=== PATIENT | male | born 1985 | race Caucasian/White ===

== ENCOUNTER 2019-07-04 21:06 | Emergency (ER) | payer OTHER, SELFPAY ==
[2019-07-04 21:06] VITALS: BP 132/83; PULSE 73; RESP 18; TEMP 36.7; O2SAT 96; BMI 19.0
--- NOTE | 2019-07-04 21:26 | ED.VISSUMM ---
- ER Visit Summary Date of Service: 07/04/19 Chief Complaint: Left leg pain History of Present Illness: The patient is a 34 M who presents with pain and mild swelling over his left leg that began this morning. Patient states he woke up and noticed the pain and swelling in his left leg. Patient describes the pain as burning. Patient states nothing makes it better or worse. Patient denies any paresthesias or weakness. Patient denies any fevers or chills. Patient denies any trauma or injury. Patient states he had a procedure on his vein in his left proximal thigh several months ago. Patient states this healed up without difficulty. Patient states he had on his left anterior lower leg approximately 1 year ago. Patient states the pain and swelling is around this old wound. Physical Examination: Vital signs are stable. Patient is afebrile. Patient is in no acute distress. Musculoskeletal exam reveals tenderness with mild erythema and warmth over the anterior aspect of the left leg. There is no calf tenderness. There is no bony crepitance or step-off. There is no discharge or drainage. There is no fluctuance. There is no evidence of any abscess. There is no tenderness over the left thigh. Pedal pulses are equal bilaterally. There are no sensory deficits noted. There is full range of motion of the lower extremities bilaterally. Strength is 5/5 bilaterally. Emergency Department Course and Treatment: Patient was advised that this is consistent with cellulitis. I do not feel this is a DVT since there is no calf tenderness and his pain and swelling is anterior on his leg. Patient was given a dose of Keflex here. Patient was given a prescription for Keflex. Patient was instructed to follow-up with his primary care physician in 5 to 7 days. Patient understood and was agreeable with the plan. All questions were answered. Disposition: Discharge home Impression: Cellulitis left leg This note was generated with [employer] dictation software. It may contain incorrect words, spelling, and punctuation that were not noted in review of the chart prior to signing ED Disposition - Plan for ED Patient: Disposition: Home or Assisted Living Diagnosis: Cellulitis of left leg Instructions: Cellulitis Prescriptions: Cephalexin [Keflex] 500 mg PO Q6 #40 cap Prescription Printed Referrals: Gary Arias MD [Primary Care Provider] - 5-7 Days
[2019-07-04] MEDS: Cephalexin 250 MG Capsule 500 MG PO (21:39)
== END 2019-07-04 21:53 | disposition home or self-care (01) ==
LOC: ED 21:42
PROVIDERS: Emergency Provider Emergency Medicine
DX: L03.116 Cellulitis of left lower limb (principal)
CPT/HCPCS: 99283

== ENCOUNTER → 2022-07-04 | Outpatient (CLI) | payer SELFPAY, OTHER ==
--- NOTE | 2022-07-04 15:55 | MRI_ITS ---
INDICATION: Right parietal venous angioma EXAMINATION: MRI - MR Brain WO/W Contrast TECHNIQUE: MRI examination of the and multisequence MR images of the brain were obtained with gadolinium. IV Contrast Dosage and Agent: None. COMPARISON: 06/28/2017 FINDINGS: HEMISPHERES, CEREBELLUM AND BRAINSTEM: 1. The cerebral parenchyma, ventricular system, subarachnoid spaces have normal configuration and density. There is a normal gyral pattern. There is normal ivy/white differentiation. No midline shift.. 2. The there is a subtle blush of contrast enhancement along the subcortical surface at the level of the RIGHT precentral gyrus measuring approximately 6 mm in maximal dimension. Pattern is unchanged. 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 No evidence fluid restriction or other signal abnormalities. 3. No other areas of abnormal contrast enhancement. No evidence fluid restriction. 4. Hemispheric white matter has normal appearance. 5. No intraparenchymal mass, hemorrhage, or acute territorial infarct. 6. The cerebellum, brainstem, basilar and suprasellar cisterns have normal appearance. No Chiari malformation. PITUITARY: Infundibulum and pituitary have normal configuration. Midline structures appear normal. CSF SPACES: Appropriate for age. No hydrocephalus. Basal cisterns are patent. VESSELS: 1. There are normal flow voids noted in the great vessels at the skull base ORBITS AND PARANASAL SINUSES: 1. Both globes, extraocular muscles, optic nerves and retrobulbar fat appear unremarkable. 2. Subtle mucosal thickening in the maxillary antra. Small mucous retention cyst in the RIGHT maxillary antrum. Remaining paranasal sinuses are clear. BONY ELEMENTS: Bony elements of the cranial vault, facial skeleton and skull base have normal appearance. SCALP AND SOFT TISSUES: Normal appearance of the soft tissues of the scalp and the visualized face OTHER: None MRI/Brain W/WO Contrast IMPRESSION: 1. Small stable focal area of contrast blush along the subcortical surface of the RIGHT precentral gyrus. Pattern and location are not changed in the interval. No associated parenchymal edema or ischemic change. No mass effect. 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 2. No other evidence of intraparenchymal mass, hemorrhage, or acute territorial infarct. No evidence fluid restriction. 3. Mild chronic appearing mucosal thickening in the ethmoid sinuses, and small mucous retention cyst in the RIGHT maxillary antrum. Electronically Signed: Bhupinder Concepcion MD at 1:27 EDT ,
== END | disposition home or self-care (01) ==
PROVIDERS: Referring Provider Psychiatry & Neurology Neurology; Visit Provider Psychiatry & Neurology Neurology
DX: D18.02 Hemangioma of intracranial structures (principal)
CPT/HCPCS: 70553; A9575

== ENCOUNTER 2023-07-29 13:34 | Emergency (ER) | payer OTHER, SELFPAY ==
[2023-07-29 13:35] VITALS: BP 130/74; PULSE 60; RESP 14; TEMP 36.5; O2SAT 100; BMI 18.6
--- NOTE | 2023-07-29 13:46 | CT_ITS ---
INDICATION: trauma EXAMINATION: CT BRAIN - CT Head or Brain W/O Contrast Injection TECHNIQUE: Multiple axial images were obtained of the head without intravenous contrast. A radiation dose optimization technique was used for this scan. IV Contrast dosage and agent: None. RADIATION DOSAGE (If Supplied By Facility): CTDIvol = ( 44.99 ) mGy, DLP = ( 863.6 ) mGycm COMPARISON: Prior MRI of the brain of 07/04/2022. FINDINGS: BRAIN PARENCHYMA: No intra- or extra-axial hemorrhage. No evidence of acute infarct. No intracranial mass or mass effect. There is preservation of the ivy/white matter interface. Posterior fossa structures are unremarkable. CSF SPACES: Asymmetric ventricles consistent with normal variant. No hydrocephalus. Basal cisterns are patent. CALVARIUM, SKULL BASE, PARANASAL SINUSES AND MASTOID AIR CELLS: Mild mucosal thickening of the left maxillary sinus. No discrete lytic or blastic abnormalities. ORBITS: Both globes, extraocular muscles, optic nerves and retrobulbar fat appear unremarkable. CT/Brain/Head without Contrast IMPRESSION: No acute intracranial process. Electronically Signed: Elijah Elliott MD at 14:48 EDT ,
--- NOTE | 2023-07-29 13:48 | EKG12_ITS ---
Test Reason : Blood Pressure : / mmHG Vent. Rate : 052 BPM Atrial Rate : 052 BPM P-R Int : 186 ms QRS Dur : 130 ms QT Int : 478 ms P-R-T Axes : 080 096 075 degrees QTc Int : 444 ms Sinus bradycardia Rightward axis Non-specific intra-ventricular conduction block Minimal voltage criteria for LVH, may be normal variant ( Chandrakant product ) Abnormal ECG Confirmed by JANELLE CASTILLO, SANDIE ([id number]), editor magazine CARIDAD HICKS ([id number]) on 08/01/2023 7:42:04 AM Referred By: Confirmed By:SANDIE LUIS MD
--- NOTE | 2023-07-29 14:03 | EX.ED.DYSGE1 ---
HPI History of Present Illness Chief Complaint: Syncope Narrative Narrative: Patient presents with after syncopal episode witnessed by his . He was standing up felt lightheaded, in fact he felt like one of his vertiginous episodes was starting and then he had a brief loss of consciousness and per relatively rapid and full recovery. He is now asymptomatic. He did hit his head. He does have a history of M?ni?re's, he also has a history of vasovagal syndrome. He is denying any chest pain or palpitations. No recent fevers or chills. [facility] Medical History (Updated 07/29/23 @ 14:[address] Isac Dickerson MD) Asthma Bone fracture Dizziness and giddiness Hearing problem Hernia Meniere's disease, left ear Pneumonia Seasonal allergies Home Medications triamterene 37.5 mg-hydrochlorothiazide 25 mg capsule 1 cap PO DAILY 05/30/22 [History Last Taken Unknown] Allergy/AdvReac Type Severity Reaction Status Date / Time No Known Allergies Allergy Verified 10/11/22 14:35 Family History Brother Asthma Father Diabetes Grandmother Heart disease Grandfather Heart disease Surgical History History of hernia repair Social History Smoking Status: Never smoker Tobacco: How many years used: 5 Electronic Cigarette Use: not used second hand exposure: No alcohol intake: never substance use type: does not use what type of physical activity do you participate in: walking frequency: 5-6 times per week philip/uatsdin: Religion ROS ROS ED ROS Narrative Past medical history: Reviewed Medications: Reviewed Social history: Noncontributory Review of systems: All systems negative except as indicated General: No fever. Syncope as in HPI Eyes: No visual changes ENT: No upper airway congestion, normal voice Neck: No neck pain Cardiovascular: No chest pain Respiratory: No shortness of breath or cough Gastrointestinal: No abdominal pain, nausea vomiting or diarrhea Genitourinary: No dysuria Musculoskeletal: Denies myalgias no difficulty with ambulation Skin: No rash Neurological: No memory loss, confusion or any focal weakness. No seizure-like activity Psych: No recent behavioral changes Hematologic: No easy bleeding or easy bruising EXAM Physical Exam Narrative Exam Narrative: Physical exam General: Well nourished, Well developed, No Acute Distress Head: Normocephalic, Atraumatic Eyes: Conjunctiva not pale ENT: Moist mucous membranes Neck: Supple, Nontender, No lymphadenopathy Cardiovascular: Regular rate, Regular rhythm Respiratory: No distress, CTA bilaterally Abdomen: Soft, Nontender, Nondistended Back: Nontender, Normal Inspection. Negative for: CVA tenderness Extremities: Nontender, No edema Skin: Normal color, No rash Neurological: Alert, Normal Strength, Normal Sensation Psychological: Normal affect Const Vital Signs: 07/29/23 13:35 07/29/23 13:41 07/29/23 14:52 Temperature 97.7 F L Temperature Source Oral Pulse Rate 60 55 L Respiratory Rate 14 14 Respiratory Pattern Normal Blood Pressure 130/74 H 116/74 Blood Pressure Mean 92 88 Pulse Ox 100 100 Oxygen Delivery Method Room Air MDM MDM MDM Narrative Medical decision making narrative: Patient's work-up is unremarkable he is given IV fluids antiemetics and significantly improved. His nausea is gone and his vertigo is gone. He feels back to normal. He will be discharged in stable condition. There is no evidence of skull fracture or intracranial hemorrhage. There is no reason to think that he had a cardiac reason for syncopal episode. There is no evidence of PE on history or examination. Lab Data Labs: Laboratory Results - last 24 hr 07/29/23 14:05 WBC 5.8 RBC 4.82 Hgb 13.9 Hct 42.2 MCV 87.6 MCH 28.8 MCHC 32.9 RDW Std Deviation 40.2 RDW Coeff of Barbara 12.5 Plt Count 289 MPV 9.1 Immature Gran % (Auto) 0.200 Neut % (Auto) 44.9 L Lymph % (Auto) 39.7 [place] % (Auto) 6.9 Eos % (Auto) 7.4 H Baso % (Auto) 0.9 Absolute Neuts (auto) 2.6 Absolute Lymphs (auto) 2.31 Nucleated RBC % 0 Sodium 136 Potassium 3.0 L Chloride 101 Carbon Dioxide 28.0 Anion Gap 7 BUN 13 Creatinine 0.89 Estim Creat Clear Calc 121.47 Est GFR (MDRD) Af Amer 125 Est GFR (MDRD) Non-Af 103 BUN/Creatinine Ratio 14.7 Glucose 134 H Calcium 8.9 Total Bilirubin 0.60 AST 15 ALT 26 Alkaline Phosphatase 60 Total Protein 7.3 Albumin 4.3 Globulin 3.0 Albumin/Globulin Ratio 1.4 Radiography Diagnostic Testing: Clinical Impression(s) from Imaging Studies Brain CT 07/29/23 13:46 IMPRESSION: No acute intracranial process. Electronically Signed: Elijah Elliott MD at 14:48 EDT , Discharge Plan Triage Chief Complaint: Syncope ED Provider: Isac Dickerson Dx/Rx/DC Orders Clinical Impression: Syncope, Vertigo Instructions: Causes of Syncope Prescriptions: No Action triamterene-hydrochlorothiazid 37.5-25 mg capsule 1 cap PO DAILY Primary Care Provider: Damien Chaudhari Referrals: Care Physician,No Primary [Non-Staff] - 3-5 Days Disposition Disposition: Home, Self Care
[2023-07-29] MEDS: 0.9% Normal Saline (1000mL) 1,000 ML 1000 ML IV (14:08)
[2023-07-29 14:19] LABS: Absolute Lymphocyte Count 2.31 X10^3/uL (0.83-4.51); Absolute Neutrophil Count 2.6 X10^3/uL (2.0-7.7); Basophil# 0.05 X10^3/uL; Basophil% 0.9 % (0-1); Eosinophil# 0.43 X10^3/uL; Eosinophils% 7.4 % (0-5); Hematocrit 42.2 % (40-54); Hemoglobin 13.9 g/dL (13.0-16.5); Lymphocyte # 2.31 X10^3/ul (0.83-4.51); Lymphocyte % 39.7 % (19-41); Mean Corp Hgb Conc 32.9 g/dL (32-36); Mean Corpuscular Hgb 28.8 pg (27.0-32.0); Mean Corpuscular Volume 87.6 fL (80-94); Mean Platelet Vol. 9.1 fl (6.2-12.0); Monocyte% 6.9 % (0-10); NRBC Flagged by Analyzer 0 % (0-5); Neutrophil # 2.62 X10^3/uL (2.7-7.7); Neutrophil % 44.9 % (47-70); Platelet Count 289 K/mm3 (150-450); RBC Distribution Width CV 12.5 % (11.6-14.6); RBC Distribution Width SD 40.2 fl (35.1-43.9); Red Blood Count 4.82 M/mm3 (4.6-6.2); White Blood Count 5.8 K/mm3 (4.4-11.0)
[2023-07-29 14:36] LABS: ALB/GLOB Ratio 1.4 RATIO (0.9-2.4); AST(SGOT) 15 U/L (15-37); Alanine Aminotransfer ALT/SGPT 26 U/L (16-61); Albumin, Serum 4.3 g/dL (3.2-5.0); Alkaline Phosphatase 60 U/L (45-117); Anion Gap 7 (5-15); BUN 13 mg/dL (7-18); BUN/Creat Ratio 14.7 RATIO (10-20); Calcium,Total 8.9 mg/dL (8.5-10.1); Chloride 101 mmol/L (98-107); Creatinine, Serum 0.89 mg/dL (0.70-1.30); EST Glomerular Filtration Rate 103 mL/min (>60); Est Glom Filt Rate - Afr Amer 125 mL/min (>60); Estimated Creatinine Clearance 121.47 ml/min; Glucose 134 mg/dL (74-106); Protein, Total 7.3 g/dL (6.4-8.2); Sodium Level 136 mmol/L (136-145)
[2023-07-29] MEDS: Ondansetron 4 MG/2 ML Vial IV (14:38)
[2023-07-29 14:52] VITALS: BP 116/74; PULSE 55; RESP 14; O2SAT 100
== END 2023-07-29 15:11 | disposition home or self-care (01) ==
PROVIDERS: Emergency Provider Emergency Medicine; PCP Family Medicine; Visit Provider Emergency Medicine
DX: R55 Syncope and collapse (principal); R42 Dizziness and giddiness
CPT/HCPCS: 70450; 80053; 85025; 93005; 96361; 96374; 99282; J7030; A4216; J2405